=== PATIENT | female | born 1980 | race Caucasian/White ===

== ENCOUNTER 2017-01-05 00:18 | Emergency (ER) | payer BC ==
[~2017-01-05] VITALS: Ht 167.6 cm; Wt 78.0 kg
[2017-01-05 00:25] VITALS: BP_SYST 143
--- NOTE | 2017-01-05 00:25 | NUR ---
Placed in room 7. Side rails up.
[2017-01-05] MEDS ORDERED: AMOXICILLIN 500 MG CAPSULE PO ONE (00:30)
[2017-01-05] MEDS ORDERED: MORPHINE 4 MG/ML INJ. SYRINGE IM ONE (00:30)
--- NOTE | 2017-01-05 00:35 | NUR ---
Patient alert and oriented x 4. Came in the ER with a complaint of toothache. Pain scale 8/10. Patient said that her tooth broke and is in pain x 2weeks now. Pain worsened last night because she ate popcorn which she thinks that a popcorn went inside her cracked tooth. Denies any other complaint. Will continue to monitor.
--- NOTE | 2017-01-05 00:38 | NUR ---
ER Dr. Cash at bedside examining patient.
[2017-01-05] MEDS ORDERED: LIDOCAINE VISCOUS 2%, 15 ML UDC MM ONE ×2 (00:45)
--- NOTE | 2017-01-05 01:21 | NUR ---
Per patient, she does not need a letter of excuse or work note because she is on vacation at this time due to her daughter just gave .
[2017-01-05 01:22] VITALS: BP_SYST 139
--- NOTE | 2017-01-05 01:22 | NUR ---
Patient given written and verbal discharge instructions and verbalizes understanding. Given copies of tests performed in ER. Patient in stable condition. ID arm band removed. Rx of Amoxicillin, [place], Ibuprofen and Lidocaine Hydrochloride 2% given. Patient educated on pain management. Pain Scale 0/10. Opportunity for questions provided and answered.
== END 2017-01-05 01:22 | disposition home or self-care (01) ==
LOC: SED 00:18
DX: K02.9 Dental caries, unspecified (principal)
CPT/HCPCS: 96372; 99283; J2001; J2270